=== PATIENT | female | born 1960 | race Caucasian/White ===

== ENCOUNTER → 2017-09-05 09:50 | Outpatient (CLI) | payer BC ==
--- NOTE | ~2017-09-05 | EC ---
PATIENT:DONNA HELTON DATE OF SERVICE: 09/05/17 SEX: F MEDICAL RECORD: [id number] DATE OF : 60 LOCATION:D. AGE OF PATIENT: 57 ADMISSION DATE: 09/05/17 REFERRING PHYSICIAN: INTERPRETING PHYSICIAN: GRZEGORZ MONREAL MD ECHOCARDIOGRAM REPORT ECHO CHARGES 4 ECHO COMPLETE Date: 09/05 CLINICAL DIAGNOSIS: CAD/CHEST PAIN ECHOCARDIOGRAPHIC MEASUREMENTS (adult normal given) AC root (d.<3.7cm) 3.7 cm LV Septum d (<1.2 cm> 1.2 cm Valve Excursion 1.4 cm LV Septum (systole) 1.5 cm Left Atria (s.<4.0cm> 3.3 cm LVPW d(<1.2cm) 1.4 cm RV (d.<2.3cm) 3.1 cm LVPW (sytole) 1.6 cm LV diastole(<5.6CM) 4.5 cm MV E-F(>70mm/sec) cm LV systole 2.8 cm LVOT Diameter 1.4 cm MV exc.(>10mm) 1.4 cm Est.ejection fraction (50-75%) % DOPPLER: LVIT cm/sec A 83.0 cm/sec E 60.0 cm/sec LA cm/sec RVSP 30 mmHg LVOT 105 cm/sec AOP1/2T m/s Asc. Ao 128 cm/sec RVOT 77 cm/sec RA cm/sec PA 119 cm/sec AV Gradient Peak 6.51 mmHg AV Mean 3.45 mmHg AV Area 1.4 cm MV Gradient Peak 2.99 mmHg MV Mean 1.10 mmHg MV Area cm COMMENTS: Practice Billing Associate: 2 YOEL LUA Authorization Coordinator: 4 Dr. Monreal TAPE# PACS Pericardial Effusion N DATE OF SERVICE: PROCEDURE: Transthoracic echocardiogram. FINDINGS: 1. The left ventricle has mild concentric left ventricular hypertrophy, ejection fraction 60% to 65%. The inflow characteristics consistent with diastolic dysfunction. 2. The mitral valve structurally appears to be normal. There is trace mitral regurgitation. ECHOCARDIOGRAM REPORT [id number] DONNA HELTON 3. The aortic valve is mildly thickened. The noncoronary cusp appears to be decreased in mobility. There is sclerosis without any evidence of significant stenosis or regurgitation. 4. The right ventricle was mildly dilated with normal function. 5. The tricuspid valve has mild tricuspid regurgitation. RVSP is normal. 6. Pulmonic valve is normal. 7. The pericardium is normal. CONCLUSION: This patient has evidence of mild hypertensive heart disease. TRANSINT:[id number] Voice Confirmation ID: [id number] DOCUMENT ID: [id number] GRZEGORZ MONREAL MD at 0741 CC: [id number] DICTATION DATE: 09/11/17 1041 PERFORATOR LOADER: 09/11/17 1216 DEP CLI 09/05/17 [id number] [place] [address]
== END | disposition home or self-care (01) ==
LOC: D.US 09:50
DX: I25.10 Atherosclerotic heart disease of native coronary artery without angina pectoris (principal); R07.9 Chest pain, unspecified; E05.90 Thyrotoxicosis, unspecified without thyrotoxic crisis or storm; I73.9 Peripheral vascular disease, unspecified; I10 Essential (primary) hypertension

== ENCOUNTER → 2017-09-18 16:54 | Outpatient (CLI) | payer BC ==
[2017-09-18 20:56] LABS: CHOL - HDL RATIO 4.3 ratio (2.3-4.1); CHOLESTEROL, TOTAL 188 mg/dL (0-200); CREATINE KINASE 421 UL (21-215); HDL CHOLESTEROL 44 mg/dL (32-96); LDL CHOLESTEROL 111 mg/dL (0-100); LDL-HDL RATIO 2.5 ratio (1.5-3.5); TRIGLYCERIDE 166 mg/dL (30-200)
[2017-09-18 20:57] LABS: ALT (SGPT) 22 U/L (10-68)
[2017-09-18 20:59] LABS: CKMB 1.3 U/L (0.0-3.6)
== END | disposition home or self-care (01) ==
LOC: D.LABREF 16:54
PROVIDERS: Internal Medicine Cardiovascular Disease
DX: E78.5 Hyperlipidemia, unspecified (principal)

== ENCOUNTER 2017-10-05 17:59 | Emergency (ER) | payer BC ==
[2017-10-05 18:47] LABS: BASOPHILS 0.5 % (0-2); EOSINOPHILS 1.7 % (0-7); HEMATOCRIT 41.4 % (36.0-48.0); HEMOGLOBIN 13.5 g/dL (12-16); IMMATURE GRANULOCYTES 0.3 % (0-5); MCH 30.1 pg (26.0-34.0); MCHC 32.6 g/dL (31.0-37.0); MCV 92.4 fL (80.0-100.0); MEAN PLATELET VOLUME 9.7 fL (7.4-10.4); NEUTROPHILS 72.5 % (40-80); PLATELET COUNT 392 10x3/uL (130-400); RBC 4.48 10x6/uL (4.00-5.40); RDW 13.3 % (11.5-14.5); WBC 11.2 10x3/uL (4.8-10.8)
[2017-10-05 18:59] LABS: ALBUMIN 3.2 g/dL (3.4-5.0); ALKALINE PHOSPHATASE 84 U/L (46-116); ALT (SGPT) 14 U/L (10-68); BILIRUBIN - TOTAL 0.19 mg/dL (0.2-1.3); CALC OSMOLALITY 281 mosm/kg (275-300); CALCIUM 9.8 mg/dL (8.5-10.1); CARBON DIOXIDE 36.7 mmol/L (21.0-32.0); CHLORIDE - SERUM 100 mmol/L (98-107); CREATININE - SERUM 0.5 mg/dL (0.6-1.3); GLUCOSE 94 mg/dL (74-106); POTASSIUM - SERUM 4.2 mmol/L (3.5-5.1); PROTEIN - SERUM 7.4 g/dL (6.4-8.2); SODIUM 141 mmol/L (136-145); UREA NITROGEN 16 mg/dL (7-18); eGFR NON AFRICAN AMERICAN > 90 mL/min (90-120)
[2017-10-05 19:17] LABS: CHOL - HDL RATIO 5.6 ratio (2.3-4.1); CHOLESTEROL, TOTAL 222 mg/dL (0-200); CKMB 0.7 U/L (0.0-3.6); CREATINE KINASE 43 UL (21-215); HDL CHOLESTEROL 40 mg/dL (32-96); LDL CHOLESTEROL 140 mg/dL (0-100); LDL-HDL RATIO 3.5 ratio (1.5-3.5); TRIGLYCERIDE 210 mg/dL (30-200)
[2017-10-05 19:19] LABS: TROPONIN-I < 0.017 ng/mL (0.000-0.060)
== END 2017-10-05 21:08 | disposition home or self-care (01) ==
LOC: D.ER 17:59
PROVIDERS: Emergency Medicine
DX: R07.9 Chest pain, unspecified (principal); I10 Essential (primary) hypertension; E05.90 Thyrotoxicosis, unspecified without thyrotoxic crisis or storm; Z85.01 Personal history of malignant neoplasm of esophagus; F17.200 Nicotine dependence, unspecified, uncomplicated